=== PATIENT | male | born 1990 | race Caucasian/White ===

== ENCOUNTER 2022-11-09 10:49 | Emergency (ER) | payer OTHER ==
[2022-11-09 11:17] VITALS: TEMP 98
[2022-11-09] MEDS ORDERED: SODIUM CHLORIDE 0.9% 1,000 ML IV STA (11:37)
[2022-11-09] MEDS ORDERED: fentaNYL (PF) 50 MCG/ML 2 ML AMP IVP PRN (11:38)
[2022-11-09] MEDS ORDERED: PANTOPRAZOLE 40 MG/10 ML VIAL IVP STA (11:39)
--- NOTE | 2022-11-09 11:43 | ED ---
Abdominal Pain HPI - General Chief Complaint: Abdominal Pain Stated Complaint: abd pain Time Seen by Provider: 11/09/22 11:32 Source: patient, RN notes reviewed, old records reviewed Mode of arrival: ambulatory Limitations: no limitations - History of Present Illness Initial Comments: This is a 32-year-old male that presents with complaint of right upper quadrant abdominal pain for the past 2 days radiating into his back. He had one episode of vomiting spaghetti today. Denies any fevers. States that he tried to drink a pint of liquor today to help with the pain with no relief. History of kidney stones. Patient states he only drinks a couple of times a month is not a daily drinker. He does vape, also smokes marijuana daily. MD Complaint: abdominal pain -: days(s) (2) Location: RUQ Radiation: R flank Severity scale (1-10): 10 Quality: sharp Consistency: constant Improves With: nothing Worsens With: nothing Associated Symptoms: nausea, vomiting - Related Data Home Medications Medication Instructions Recorded Confirmed Albuterol Sulfate [Albuterol 1 - 2 puff PO RT-Q4H PRN 11/09/22 11/09/22 Sulfate Hfa] Previous Rx's Medication Instructions Recorded Famotidine [Pepcid] 20 mg PO BID #28 tablet 11/09/22 Allergies Allergy/AdvReac Type Severity Reaction Status Date / Time arrieta Allergy Anaphylaxis Verified 11/09/22 13:17 morphine Allergy Swelling Verified 11/09/22 13:17 Review of Systems ROS Statement: Those systems with pertinent positive or pertinent negative responses have been documented in the HPI. ROS Other: All systems not noted in ROS Statement are negative. Past Medical History Past Medical History: Asthma Additional Past Medical History / Comment(s): kidney stone History of Any Multi-Drug Resistant Organisms: None Reported Past Surgical History: No Surgical Hx Reported Past Psychological History: No Psychological Hx Reported Smoking Status: Current every day smoker Past Alcohol Use History: Abuse Past Drug Use History: None Reported General Exam Limitations: no limitations General appearance: alert, in no apparent distress Head exam: Present: atraumatic Eye exam: Absent: scleral icterus, conjunctival injection, periorbital swelling ENT exam: Present: mucous membranes moist, other (Poor dentition) Neck exam: Present: full ROM. Absent: tenderness, meningismus Respiratory exam: Present: normal lung sounds bilaterally. Absent: respiratory distress, accessory muscle use Cardiovascular Exam: Present: tachycardia GI/Abdominal exam: Present: soft, tenderness (Right upper quadrant). Absent: distended, rigid, mass Extremities exam: Present: normal capillary refill Back exam: Present: normal inspection, full ROM. Absent: tenderness, CVA tenderness (R), CVA tenderness (L), vertebral tenderness, rash noted Neurological exam: Present: alert, oriented X3, normal gait Psychiatric exam: Present: normal affect, normal mood Skin exam: Present: warm, dry, normal color. Absent: cyanosis, diaphoretic, petechiae, pallor Course Vital Signs 11/09/22 11/09/22 11:14 13:51 Temperature 98 F Pulse Rate 110 H 104 H Respiratory 20 18 Rate Blood Pressure 132/87 112/66 O2 Sat by Pulse 96 100 Oximetry Medical Decision Making - Medical Decision Making Labs show an alcohol level 284, lactic acid 2.3, lipase 176, AST 75, ALT 66 and Tbili 0.4. He was given IV fluid bolus, droperidol Protonix and fentanyl. CT shows bilateral nonobstructive renal calculi, no suspicious stones along the ureters. Questionable slight haziness adjacent to the pancreatic head correlate with mild acute pancreatitis. Patient states that he is feeling better and requesting to be discharged home. He was directed to find a ride as his level is elevated 0.284. He was prescribed pepcid and directed to avoid alcohol and followup with his PCP next week, return to the ER if any new or worsening symptoms. He is agreeable to this plan of care. Case discussed with Dr Luo Was pt. sent in by a medical professional or institution? @ No Did you speak to anyone other than the patient for history? @ no Did you review nursing and triage notes? @ Yes I agree Were old charts reviewed? @ No Differential Diagnosis? @ MDM Differential Abdominal Pain Men: Appendicitis, cholecystitis, diverticulosis, ischemic bowel, pancreatitis, hepatitis, UTI, gastroenteritis, AAA, incarcerated hernia, bowel obstruction, constipation, inflammatory bowel, hepatitis, peptic ulcer disease, splenic infarction, perforated viscus, testicular torsion... This is not meant to be an all-inclusive list EKG interpreted by me (3pts min.)? @ [none] X-rays interpreted by me (1pt min.)? @ [none] CT interpreted by me (1pt min.)? @ No U/S interpreted by me (1pt. min.)? @ [none] What testing was considered but not performed? (CT, X-rays, U/S, labs)? Why? @ None What meds were considered but not given? Why? @ Antibiotics considered but no infectious etiology was found Did you discuss the management of the patient with other professionals? @ No Did you reconcile home meds? @ none Was smoking cessation discussed for >3mins.? @ Yes discussed smoking is consistent with a prolonged healing time and chronic illness Was critical care preformed (if so, how long)? @ No Were there social determinants of health that impacted care today? How? (Homelessness, low income, unemployed, alcoholism, drug addiction, transportation, low edu. Level, literacy, decrease access to med. care, group home, rehab)? @ Alcohol use and marijuana as well as discussed Was there de-escalation of care discussed even if they declined? (Discuss DNR or withdrawal of care, Hospice)? @ None What co-morbidities impacted this encounter? (DM, HTN, Smoking, COPD, CAD, Cancer, CVA, Hep., AIDS, mental health diagnosis, sleep apnea, morbid obesity)? @ Smoking Was patient admitted / discharged? @ Discharged Undiagnosed new problem with uncertain prognosis? @ Pancreatitis Drug Therapy requiring intensive monitoring for toxicity (Heparin, Nitro, Insulin, Cardizem)? @ [none] Were any procedures done? @ No Diagnosis/symptom? @ Mild pancreatitis, gastritis Acute, or Chronic, or Acute on Chronic? @ Acute Uncomplicated (without systemic symptoms) or Complicated (systemic symptoms)? @ Uncomplicated Side effects of treatment? @ [none] Exacerbation, Progression, or Severe Exacerbation] @ [no] Poses a threat to life or bodily function? @ [no] - Lab Data Result diagrams: 11/09/22 12:05 11/09/22 12:05 Lab Results 11/09/22 11/09/22 11/09/22 Range/Units 12: 12:05 12:05 WBC 8.9 (3.8-10.6) k/uL RBC 5.17 (4.30-5.90) m/uL Hgb 15.9 (13.0-17.5) gm/dL Hct 45.3 (39.0-53.0) % MCV 87.5 (80.0-100.0) fL MCH 30.8 (25.0-35.0) pg MCHC 35.1 (31.0-37.0) g/dL RDW 13.2 (11.5-15.5) % Plt Count 471 H (150-450) k/uL MPV 7.3 Neutrophils % 44 % Lymphocytes % 45 % Monocytes % 5 % Eosinophils % 2 % Basophils % 1 % Neutrophils # 3.9 (1.3-7.7) k/uL Lymphocytes # 4.0 (1.0-4.8) k/uL Monocytes # 0.5 (0-1.0) k/uL Eosinophils # 0.2 (0-0.7) k/uL Basophils # 0.1 (0-0.2) k/uL Sodium 142 (137-145) mmol/L Potassium 4.4 (3.5-5.1) mmol/L Chloride 109 H (98-107) mmol/L Carbon Dioxide 19 L (22-30) mmol/L Anion Gap 14 mmol/L BUN 11 (9-20) mg/dL Creatinine 0.81 (0.66-1.25) mg/dL Est GFR (CKD-EPI)AfAm >90 (>60 ml/min/1.73 sqM) Est GFR (CKD-EPI)NonAf >90 (>60 ml/min/1.73 sqM) Glucose 77 (74-99) mg/dL Lactic Ac Sepsis Rflx Plasma Lactic Acid [place] 2.3 H* (0.7-2.0) mmol/L Calcium 9.1 (8.4-10.2) mg/dL Total Bilirubin 0.4 (0.2-1.3) mg/dL AST 75 H (17-59) U/L ALT 66 H (4-49) U/L Alkaline Phosphatase 117 (38-126) U/L Total Protein 8.3 H (6.3-8.2) g/dL Albumin 5.1 H (3.5-5.0) g/dL Amylase 71 (30-110) U/L Lipase 176 (23-300) U/L Urine Color Urine Appearance (Clear) Urine pH (5.0-8.0) Ur Specific [place] (1.001-1.035) Urine Protein (Negative) Urine Glucose (UA) (Negative) Urine Ketones (Negative) Urine Blood (Negative) Urine Nitrite (Negative) Urine Bilirubin (Negative) Urine Urobilinogen (<2.0) mg/dL Ur Leukocyte Esterase (Negative) Serum Alcohol 284 H* mg/dL 11/09/22 11/09/22 Range/Units 13:13 13:22 WBC (3.8-10.6) k/uL RBC (4.30-5.90) m/uL Hgb (13.0-17.5) gm/dL Hct (39.0-53.0) % MCV (80.0-100.0) fL MCH (25.0-35.0) pg MCHC (31.0-37.0) g/dL RDW (11.5-15.5) % Plt Count (150-450) k/uL MPV Neutrophils % % Lymphocytes % % Monocytes % % Eosinophils % % Basophils % % Neutrophils # (1.3-7.7) k/uL Lymphocytes # (1.0-4.8) k/uL Monocytes # (0-1.0) k/uL Eosinophils # (0-0.7) k/uL Basophils # (0-0.2) k/uL Sodium (137-145) mmol/L Potassium (3.5-5.1) mmol/L Chloride (98-107) mmol/L Carbon Dioxide (22-30) mmol/L Anion Gap mmol/L BUN (9-20) mg/dL Creatinine (0.66-1.25) mg/dL Est GFR (CKD-EPI)AfAm (>60 ml/min/1.73 sqM) Est GFR (CKD-EPI)NonAf (>60 ml/min/1.73 sqM) Glucose (74-99) mg/dL Lactic Ac Sepsis Rflx Y Plasma Lactic Acid [place] (0.7-2.0) mmol/L Calcium (8.4-10.2) mg/dL Total Bilirubin (0.2-1.3) mg/dL AST (17-59) U/L ALT (4-49) U/L Alkaline Phosphatase (38-126) U/L Total Protein (6.3-8.2) g/dL Albumin (3.5-5.0) g/dL Amylase (30-110) U/L Lipase (23-300) U/L Urine Color Light Yellow Urine Appearance Clear (Clear) Urine pH 5.5 (5.0-8.0) Ur Specific [place] 1.008 (1.001-1.035) Urine Protein Negative (Negative) Urine Glucose (UA) Negative (Negative) Urine Ketones 1+ H (Negative) Urine Blood Negative (Negative) Urine Nitrite Negative (Negative) Urine Bilirubin Negative (Negative) Urine Urobilinogen <2.0 (<2.0) mg/dL Ur Leukocyte Esterase Negative (Negative) Serum Alcohol mg/dL Disposition Clinical Impression: Abdominal pain, Pancreatitis, Gastritis Disposition: HOME SELF-CARE Condition: Good Instructions (If sedation given, give patient instructions): Gastritis (ED), Abdominal Pain (ED) Additional Instructions: Stop drinking, stop smoking marijuana and stop vaping. These things will prolong illness and cause chronic illnesses. Take Pepcid as prescribed. Increase your fluid intake. Eat small low fat meals and slowly advance your diet over the next 3-6 days. Follow-up with your primary care doctor next week. Return to the emergency room with any new or concerning symptoms.. Prescriptions: Famotidine [Pepcid] 20 mg PO BID #28 tablet Is patient prescribed a controlled substance at d/c from ED?: No Referrals: None,Stated [Primary Care Provider] - 1-2 days Time of Disposition: 13:42
--- NOTE | 2022-11-09 12:45 | CT ---
EXAMINATION TYPE: CT abdomen pelvis wo con DATE OF EXAM: 11/09/2022 COMPARISON: None HISTORY: 32-year-old male generalized abdominal pain CT DLP: 365.3 mGycm. Automated exposure control for dose reduction was used. TECHNIQUE: Contiguous axial scanning of the abdomen and pelvis without IV contrast. Coronal and sagit charlee reconstructions performed. FINDINGS: LUNG BASES: No significant abnormality is appreciated. LIVER/GB: Diffuse low attenuation of the hepatic parenchyma compatible with fatty infiltration. Gallb ladder within normal limits. PANCREAS: Questionable slight peripancreatic hazy density anterior to the head of the pancreas, axial images 43 and 44. SPLEEN: No significant abnormality is seen. ADRENALS: No significant abnormality is seen. KIDNEYS: Extrarenal pelvis, left greater than right. 4 mm nonobstructive right renal calculus. 9 mm n onobstructive left renal calculus. No suspicious calcification seen along the course of either ureter . BOWEL: Mild overall stool burden. No dilated small bowel, free fluid, or free air. Normal appendix. LYMPH NODES: No significant abnormality is seen. PELVIS: Prostate gland mildly enlarged at 4.2 cm wide. No abnormal fluid collection in the pelvis or pelvic lymphadenopathy. BONES: No significant abnormality is seen. IMPRESSION: 1. At least moderate hepatic steatosis. Correlate with LFTs, lipid profile, patient risk factors. 2. Questionable slight haziness adjacent to the pancreatic head. Correlate with amylase and lipase l evels to exclude mild acute pancreatitis. 3. Bilateral nonobstructive renal calculi measuring 9 mm on the left and 4 mm on the right. No suspi cious stone seen along the course of either ureter. 4. Mild prostatomegaly at 4.2 cm wide.
[2022-11-09 12:51] LABS: Basophils # (A) 0.1 k/uL (0-0.2); Basophils % (A) 1 %; Eosinophils # (A) 0.2 k/uL (0-0.7); Eosinophils % (A) 2 %; HCT 45.3 % (39.0-53.0); HGB 15.9 gm/dL (13.0-17.5); Lymphocytes % (A) 45 %; MCH 30.8 pg (25.0-35.0); MCHC 35.1 g/dL (31.0-37.0); MCV 87.5 fL (80.0-100.0); Mean Platelet Volume 7.3; Monocytes # (A) 0.5 k/uL (0-1.0); Monocytes % (A) 5 %; Neutrophils # (A) 3.9 k/uL (1.3-7.7); Neutrophils % (A) 44 %; Platelet Count 471 k/uL (150-450); RBC 5.17 m/uL (4.30-5.90); RDW 13.2 % (11.5-15.5); WBC 8.9 k/uL (3.8-10.6)
[2022-11-09 13:21] LABS: Appearance,Urine Clear (Clear); Bilirubin,Urine Negative (Negative); Blood,Urine Negative (Negative); Color,Urine Light Yellow; Glucose,Urine (UA) Negative (Negative); Ketones,Urine 1+ (Negative); Leukocyte Esterase,Urine Negative (Negative); Nitrite,Urine Negative (Negative); PH, Urine 5.5 (5.0-8.0); Protein,Urine Negative (Negative); Specific Gravity,Urine 1.008 (1.001-1.035); Urobilinogen,Urine <2.0 mg/dL (<2.0)
[2022-11-09 13:23] LABS: ALT 66 U/L (4-49); AST 75 U/L (17-59); African American GFR (CKD) >90 (>60 ml/min/1.73 sqM); Albumin 5.1 g/dL (3.5-5.0); Alkaline Phosphatase 117 U/L (38-126); Amylase 71 U/L (30-110); Anion Gap 14 mmol/L; Blood Urea Nitrogen 11 mg/dL (9-20); Calcium 9.1 mg/dL (8.4-10.2); Carbon Dioxide 19 mmol/L (22-30); Chloride 109 mmol/L (98-107); Glucose 77 mg/dL (74-99); Lipase 176 U/L (23-300); Non-African American GFR(CKD) >90 (>60 ml/min/1.73 sqM); Potassium 4.4 mmol/L (3.5-5.1); Sodium 142 mmol/L (137-145); Total Bilirubin 0.4 mg/dL (0.2-1.3); Total Protein 8.3 g/dL (6.3-8.2)
[2022-11-09 13:27] LABS: Alcohol 284 mg/dL
[2022-11-09 13:53] VITALS: BP 112/66; PULSE 104; RESP 18
== END 2022-11-09 13:53 | disposition home or self-care (01) ==
LOC: EC 10:49
DX: R10.11 Right upper quadrant pain (principal); K85.90 Acute pancreatitis without necrosis or infection, unspecified; K29.70 Gastritis, unspecified, without bleeding; J45.909 Unspecified asthma, uncomplicated; F17.200 Nicotine dependence, unspecified, uncomplicated; Z91.018 Allergy to other foods; Z88.6 Allergy status to analgesic agent; Z79.899 Other long term (current) drug therapy
CPT/HCPCS: 36415; 80053; 82150; 83605; 83690; 85025; 81003; 74176; 99284; 96374; 96375; 96361; G0480; C9113; J1790; 80320

== ENCOUNTER 2022-11-25 10:35 | Inpatient (IN) | payer OTHER ==
[2022-11-25] MEDS ORDERED: SODIUM CHLORIDE 0.9% 1,000 ML IV STA ×2 (10:56)
[2022-11-25] MEDS ORDERED: PANTOPRAZOLE 40 MG/10 ML VIAL IVP STA (10:56)
[2022-11-25] MEDS ORDERED: ONDANSETRON 4 MG/2 ML VIAL IVP STA (10:56)
[2022-11-25] MEDS ORDERED: HYDROmorphone 0.5 MG/0.5 ML SYRINGE IVP STA (10:57)
--- NOTE | 2022-11-25 10:58 | ED ---
Abdominal Pain HPI - General Chief Complaint: Abdominal Pain Stated Complaint: pancreatitis Time Seen by Provider: 11/25/22 10:38 Source: patient, EMS, RN notes reviewed, old records reviewed - History of Present Illness Initial Comments: This is a 32-year-old male that presents to the emergency room with abdominal pain radiating into his back with nausea and vomiting. History of pancreatitis states feels the same. States was just discharged on November 15 for pancreatitis. Denies any alcohol use. States that the pain never went away even at discharge was down only to 2. At 10 o'clock this morning became severe again in nature bringing him back to the emergency room. MD Complaint: abdominal pain -: hour(s) (1) Location: epigastric Radiation: back Severity scale (1-10): 10 Consistency: constant Context: other (Pancreatitis history) - Related Data Home Medications Medication Instructions Recorded Confirmed Albuterol Sulfate [Albuterol 1 - 2 puff INHALATION RT-Q4H PRN 11/09/22 11/25/22 Sulfate Hfa] Allergies Allergy/AdvReac Type Severity Reaction Status Date / Time arrieta Allergy Anaphylaxis Verified 11/25/22 10:42 Review of Systems ROS Statement: Those systems with pertinent positive or pertinent negative responses have been documented in the HPI. ROS Other: All systems not noted in ROS Statement are negative. Past Medical History Past Medical History: Asthma Additional Past Medical History / Comment(s): kidney stone History of Any Multi-Drug Resistant Organisms: MRSA, None Reported Date of last positivie culture/infection: 2016 MDRO Source:: leg Past Surgical History: No Surgical Hx Reported Additional Past Anesthesia/Blood Transfusion Reaction / Comment(s): N/A Past Psychological History: No Psychological Hx Reported Smoking Status: Current every day smoker, Vaper Past Alcohol Use History: Abuse, Daily Past Drug Use History: Marijuana, None Reported - Past Family History Father History Unknown: Yes Additional Family Medical History / Comment(s): from being "beaten to " per patient. Mother Family Medical History: Cancer Additional Family Medical History / Comment(s): from cancer at age 43, unsure of what kind. General Exam Limitations: no limitations General appearance: alert, in no apparent distress Head exam: Present: atraumatic Respiratory exam: Absent: respiratory distress, accessory muscle use Cardiovascular Exam: Present: regular rate GI/Abdominal exam: Present: tenderness. Absent: distended, rigid Extremities exam: Present: normal capillary refill. Absent: pedal edema Back exam: Present: paraspinal tenderness (Lumbar) Neurological exam: Present: alert, oriented X3 Psychiatric exam: Present: normal affect, normal mood Skin exam: Present: warm, dry, normal color. Absent: cyanosis, diaphoretic, petechiae, pallor Course Vital Signs 11/25/22 11/25/22 11/25/22 10:38 11:04 12:40 Temperature 98.1 F Pulse Rate 66 69 56 L Respiratory 19 18 18 Rate Blood Pressure 143/119 143/119 156/100 O2 Sat by Pulse 100 99 100 Oximetry 11/25/22 13:43 Temperature Pulse Rate 52 L Respiratory 19 Rate Blood Pressure 161/106 O2 Sat by Pulse 98 Oximetry - Reevaluation(s) Reevaluation #1: 11/25/22 12:14 CT performed on November 15, repeat CT requested by Dr. Guzman Time: 12:14 Medical Decision Making - Medical Decision Making Patient was seen by Dr. Henriquez at last admission and directed to avoid alcohol, continue low fat diet. Discharged with a lipase of 1741 On last admission a CT was performed showing acute interstitial, pancreatitis no necrosis or pancreatic fluid collection. 8 mm hypodense focus in pancreatic head which may represent a pseudocyst. Today X-ray shows a 6 mm left renal calculus, nonspecific bowel gas pattern no evidence for acute process. No evidence of leukocytosis or lactic acidosis. Amylase 321, lipase 3804, doubled from last admission He'll be admitted for pancreatitis. He was given multiple doses of pain medication with some pain relief. He is agreeable to admission. Case discussed with Dr. Barrios Case discussed with Dr. Guzman who requested CT. CT shows acute interstitial edematous pancreatitis with no evidence of necrosis. An 8 mm hypodense focus within the pancreatic head representing a pseudocyst. Nonobstructive bilateral renal calculi. Was pt. sent in by a medical professional or institution? @ -No Did you speak to anyone other than the patient for history? @ -No Did you review nursing and triage notes? @ -yes I agree Were old charts reviewed? @ -yes, previous admission records, CT and labs Differential Diagnosis? @ -Differential Abdominal Pain Men: Appendicitis, cholecystitis, diverticulosis, ischemic bowel, pancreatitis, hepatitis, UTI, gastroenteritis, incarcerated hernia, bowel obstruction, constipation, inflammatory bowel, hepatitis, peptic ulcer disease, splenic infarction, perforated viscus, this is not meant to be an all-inclusive list EKG interpreted by me (3pts min.)? @ -[none] X-rays interpreted by me (1pt min.)? @ -Yes as above CT interpreted by me (1pt min.)? @ -no U/S interpreted by me (1pt. min.)? @ -[none] What testing was considered but not performed? (CT, X-rays, U/S, labs)? Why? @ No What meds were considered but not given? Why? @ -Antibiotics were considered however there is no evidence of appendicitis, or infectious etiology. This appears to be exacerbation of pancreatitis Did you discuss the management of the patient with other professionals? @ -Dr Guzman Did you reconcile home meds? @ -No Was smoking cessation discussed for >3mins.? @ -Yes Was critical care preformed (if so, how long)? @ -No Were there social determinants of health that impacted care today? How? (Homelessness, low income, unemployed, alcoholism, drug addiction, transportation, low edu. Level, literacy, decrease access to med. care, [facility], rehab)? @ -Alcoholism Was there de-escalation of care discussed even if they declined? (Discuss DNR or withdrawal of care, Hospice)? @ -No What co-morbidities impacted this encounter? (DM, HTN, Smoking, COPD, CAD, Cancer, CVA, Hep., AIDS, mental health diagnosis, sleep apnea, morbid obesity)? @ -Smoking, alcohol use Was patient admitted / discharged? @ -Admitted Undiagnosed new problem with uncertain prognosis? @ -[none] Drug Therapy requiring intensive monitoring for toxicity (Heparin, Nitro, Insulin, Cardizem)? @ -No Were any procedures done? @ -No Diagnosis/symptom? @ -Pancreatitis Acute, or Chronic, or Acute on Chronic? @ -Acute Uncomplicated (without systemic symptoms) or Complicated (systemic symptoms)? @ -Complicated Side effects of treatment? @ -[none] Exacerbation, Progression, or Severe Exacerbation] @ -[no] Poses a threat to life or bodily function? @ -[no] - Lab Data Result diagrams: 11/25/22 11:11 11/25/22 11:11 Lab Results 11/25/22 11/25/22 11/25/22 Range/Units 11:11 11:11 11:11 WBC 7.8 (3.8-10.6) k/uL RBC 4.94 (4.30-5.90) m/uL Hgb 15.2 (13.0-17.5) gm/dL Hct 44.0 (39.0-53.0) % MCV 89.2 (80.0-100.0) fL MCH 30.7 (25.0-35.0) pg MCHC 34.5 (31.0-37.0) g/dL RDW 13.6 (11.5-15.5) % Plt Count 580 H (150-450) k/uL MPV 6.8 Neutrophils % 43 % Lymphocytes % 42 % Monocytes % 5 % Eosinophils % 6 % Basophils % 1 % Neutrophils # 3.4 (1.3-7.7) k/uL Lymphocytes # 3.3 (1.0-4.8) k/uL Monocytes # 0.4 (0-1.0) k/uL Eosinophils # 0.4 (0-0.7) k/uL Basophils # 0.1 (0-0.2) k/uL Sodium 140 (137-145) mmol/L Potassium 4.2 (3.5-5.1) mmol/L Chloride 106 (98-107) mmol/L Carbon Dioxide 25 (22-30) mmol/L Anion Gap 9 mmol/L BUN 8 L (9-20) mg/dL Creatinine 0.79 (0.66-1.25) mg/dL Est GFR (CKD-EPI)AfAm >90 (>60 ml/min/1.73 sqM) Est GFR (CKD-EPI)NonAf >90 (>60 ml/min/1.73 sqM) Glucose 110 H (74-99) mg/dL Plasma Lactic Acid [place] 1.6 (0.7-2.0) mmol/L Calcium 9.7 (8.4-10.2) mg/dL Total Bilirubin 0.8 (0.2-1.3) mg/dL AST 50 (17-59) U/L ALT 45 (4-49) U/L Alkaline Phosphatase 101 (38-126) U/L Total Protein 7.5 (6.3-8.2) g/dL Albumin 4.4 (3.5-5.0) g/dL Amylase 321 H* (30-110) U/L Lipase 3804 H (23-300) U/L Disposition Clinical Impression: Pancreatitis Disposition: ADMITTED IP TO THIS [facility] Decision Date: 11/25/22 Decision Time: 12:07
[2022-11-25 11:20] LABS: Basophils # (A) 0.1 k/uL (0-0.2); Basophils % (A) 1 %; Eosinophils # (A) 0.4 k/uL (0-0.7); Eosinophils % (A) 6 %; HGB 15.2 gm/dL (13.0-17.5); Lymphocytes # (A) 3.3 k/uL (1.0-4.8); Lymphocytes % (A) 42 %; MCH 30.7 pg (25.0-35.0); MCHC 34.5 g/dL (31.0-37.0); MCV 89.2 fL (80.0-100.0); Mean Platelet Volume 6.8; Monocytes # (A) 0.4 k/uL (0-1.0); Monocytes % (A) 5 %; Neutrophils # (A) 3.4 k/uL (1.3-7.7); Neutrophils % (A) 43 %; Platelet Count 580 k/uL (150-450); RBC 4.94 m/uL (4.30-5.90); RDW 13.6 % (11.5-15.5); WBC 7.8 k/uL (3.8-10.6)
[2022-11-25 11:36] LABS: ALT 45 U/L (4-49); AST 50 U/L (17-59); African American GFR (CKD) >90 (>60 ml/min/1.73 sqM); Albumin 4.4 g/dL (3.5-5.0); Alkaline Phosphatase 101 U/L (38-126); Anion Gap 9 mmol/L; Blood Urea Nitrogen 8 mg/dL (9-20); Calcium 9.7 mg/dL (8.4-10.2); Carbon Dioxide 25 mmol/L (22-30); Chloride 106 mmol/L (98-107); Glucose 110 mg/dL (74-99); Non-African American GFR(CKD) >90 (>60 ml/min/1.73 sqM); Potassium 4.2 mmol/L (3.5-5.1); Sodium 140 mmol/L (137-145); Total Bilirubin 0.8 mg/dL (0.2-1.3); Total Protein 7.5 g/dL (6.3-8.2)
--- NOTE | 2022-11-25 11:37 | XR ---
EXAMINATION TYPE: XR KUB DATE OF EXAM: 11/25/2022 11:23 AM INDICATION: Patient age:Male; 32 years old; Reason for study: abdominal pain; COMPARISON: None. TECHNIQUE: One radiographic view of the abdomen was obtained. FINDINGS: The bowel gas pattern is nonspecific without dilated loops of small or large bowel. There i s no evidence for organomegaly or pneumoperitoneum. The osseous structures are intact. 6 mm left benjy al calculus Fecal material and gas are demonstrated throughout the colon and rectum. IMPRESSION: 1. Left renal calculus measures 6 mm. 2. Nonspecific bowel gas pattern without radiographic evidence for acute process.
[2022-11-25 11:42] LABS: Amylase 321 U/L (30-110)
[2022-11-25 11:47] LABS: Lipase 3804 U/L (23-300)
[2022-11-25] MEDS ORDERED: HYDROmorphone 0.5 MG/0.5 ML SYRINGE IVP PRN (12:11)
[2022-11-25] MEDS ORDERED: ACETAMINOPHEN TAB 325 MG TAB PO PRN (12:11)
[2022-11-25] MEDS ORDERED: NALOXONE 0.4 MG/ML 1 ML VIAL IV PRN ×2 (12:11→13:43)
[2022-11-25] MEDS ORDERED: SODIUM CHLORIDE 0.9% 1,000 ML IV SCH (12:15)
--- NOTE | 2022-11-25 12:48 | CT ---
EXAMINATION TYPE: CT abdomen pelvis w con CT DLP: 628.5 mGycm, Automated exposure control for dose reduction was used. DATE OF EXAM: 11/25/2022 12:31 PM COMPARISON: 11/15/2022 CLINICAL INDICATION:Male, 32 years old with history of pancreatitis abd pain; upper abd pain TECHNIQUE: Axial CT of the abdomen and pelvis. Sagittal and coronal reformats were created on a [employer] workstation. Contrast used:100 mL of Isovue 300 with IV Contrast, Oral contrast used: without Oral Contrast FINDINGS: LOWER CHEST: Unremarkable ABDOMEN LIVER: Unremarkable GALLBLADDER AND BILE DUCTS: Unremarkable. PANCREAS: Redemonstration of edematous pancreas predominantly involving the tail with adjacent fat st randing extending along the left anterior pararenal fascia. Additional sagittal haziness involving th e pancreatic head. 8 mm hypodense focus within the pancreatic head is unchanged. No organized fluid c ollection or evidence of necrosis. No parenchymal calcifications. Poor opacification of the arterial vasculature however no gross evidence for pseudoaneurysm. The venous vasculature is patent. SPLEEN: Unremarkable. ADRENAL GLANDS: Unremarkable. KIDNEYS AND URETERS: No evidence of hydronephrosis. Subcentimeter hypodense focus within the right mi d kidney which is too small to characterize. Nonobstructive right inferior pole 3 mm calculus. Nonobs tructive left inferior pole 6 mm calculus. PELVIS BLADDER: Underdistended, limiting evaluation. REPRODUCTIVE: Unremarkable. ABDOMEN & PELVIS STOMACH AND BOWEL: Stomach and duodenum are unremarkable. No focal wall thickening. The appendix is w ithin normal limits. No evidence of bowel obstruction. PERITONEUM: No evidence of pneumoperitoneum with small amount of free fluid and mesenteric edema. VASCULATURE: No evidence of aortic aneurysm. MUSCULOSKELETAL: No acute osseous abnormalities. Scarring foci within the bilateral proximal femurs a nd right initial tuberosity are most consistent with benign bone islands. LYMPH NODES: No gross evidence for lymphadenopathy. SOFT TISSUE/ABDOMINAL WALL: Mild anasarca. IMPRESSION: 1. Similar acute interstitial edematous pancreatitis. No evidence for necrosis or organized peripancr eatic fluid collection. 2. Similar 8 millimeter hypodense focus within the pancreatic head which may represent a pseudocyst. 3. Similar Anasarca with mesenteric edema and small amount of free fluid likely related to #1. 4. Nonobstructive bilateral renal calculi.
[2022-11-25] MEDS ORDERED: bisacodyL 5 MG TABLET.DR PO PRN (13:43)
[2022-11-25] MEDS ORDERED: MELATONIN 3 MG TABLET PO PRN (13:43)
[2022-11-25] MEDS ORDERED: LORazepam 2 MG/ML INJ IV PRN (13:43)
[2022-11-25] MEDS ORDERED: ALBUTEROL NEBULIZED 2.5 MG/3 ML INHALATION PRN (13:45)
[2022-11-25] MEDS ORDERED: LACTATED RINGERS 1,000 ML IV SCH ×2 (13:45)
--- NOTE | 2022-11-25 13:50 | P.HPIM ---
History of Present Illness H&P Date: 11/25/22 Patient is a 32-year-old male who initially presented to the ER on 11/09 he was diagnosed with pancreatitis, intially he went home from the ED and then represented on 11/10 requiring hospitalization for pancreatitis through 11/15. He presented to the ER on 11/25 due to worsening abdominal pain. In the ER he underwent an extensive evaluation. He was hypertensive on arrival with a blood pressure of 143/119. Initial laboratory analysis demonstrated a platelet count of 580, glucose 110, amylase 321, and lipase 3804. KUB demonstrated left renal calculus.CT abdomen and pelvis shows interstitial edematous pancreatitis without evidence of necrosis or organized pancreatic fluid collection with an 8 mm hypodense focus at the pancreatic head which may represent pseudocyst, mesenteri c anasarca and edema, and nonobstructive bilateral renal calculi. In the ER he was given IV fluids, antiemetics, and Dilaudid. He is admitted for acute pancreatitis. Patient seen and examined at bedside. He reports that he was a miserable state of health yesterday. This morning he woke up at 10 AM and started having vomiting and sharp abdominal pain. Here he vomited 2 prior to presenting to the ER and has since been having dry heaves. He reports that his pain is epigastric with radiation to his back and then up into the left side of his chest. He does report a burning sensation of the back of his throat. He has not drank any alcohol since being discharged on 11/15/22. He denies any recent fatty foods but did have a lot of sugar yesterday. He denies eating anything else unusual. She has not yet followed up with Dr. Bullock's appointment is upcoming. He states he has been following his low-fat diet well and was attempting to avoid recurrent pancreatitis. He did take some NyQuil last night which is horrible for him. He has had one bout of diarrhea. He has no other complaints currently. Pertinent positives and negatives as discussed in HPI, a complete review of systems was performed and all other systems are negative. Vital signs reviewed General: nontoxic, mild distress secondary to pain, appears at stated age Derm: warm, dry Head: atraumatic, normocephalic, symmetric Eyes: EOMI, no lid lag, anicteric sclera, pupils equal round reactive to light ENT: Nose and ears atraumatic, no thrush, + pharyngeal erythema Neck: No thyromegaly, no cervical lymphadenopathy, trachea midline, supple Mouth: no lip lesion, mucus membranes moist Cardiovascular: S1S2 reg, no murmur, positive posterior tibial pulse bilateral, no edema, capillary refill less than 2 seconds Lungs: clear to auscultation bilateral, no rhonchi, no rales, no wheeze, no accessory muscle use Abdominal: soft, tender to palpation diffusely, most exclusively tender periepigastric., no guarding, no appreciable organomegaly, normal bowel sounds Ext: no gross muscle atrophy, muscle strength 5 out of 5 in all 4 extremities, no contractures Neuro: CN II-XII grossly intact, light touch intact all 4 extremities, finger to nose within normal limits, Psych: Alert, oriented, appropriate affect Assessment/Plan: Acute pancreatitis, recurrent Probable small pancreatic pseudocyst -Change IV fluids to lactated Ringer's run at 200 mL/h -Patient needs an additional 2 L of IV fluids -Nothing by mouth except for ice chips -Gallbladder ultrasound -Check IgG4 level -Consult GI in a.m. -Antiemetics, pain control - consider MRCP for evaluation of pancreatic head - has not drank alcohol since last discharge Nicotine dependency - cessation asthma without exacerbation - prn bronchdilators. Thrombocytosis - likely reactive - follow CBC The patient is admitted with an anticipated greater than 2 midnight stay for evaluation of recurrent pancreatitis DVT prophylaxis: lovenox Discussed with: patient Anticipated discharge date: pending clinical course Anticipated discharge place:pending clinical course A total of 65 minutes was spent on the care of this complex patient more than 50% of the time was spent in counseling and care coordination. Past Medical History Past Medical History: Asthma Additional Past Medical History / Comment(s): kidney stone History of Any Multi-Drug Resistant Organisms: MRSA, None Reported Date of last positivie culture/infection: 2016 MDRO Source:: leg Past Surgical History: No Surgical Hx Reported Additional Past Anesthesia/Blood Transfusion Reaction / Comment(s): N/A Past Psychological History: No Psychological Hx Reported Smoking Status: Current every day smoker, Vaper Past Alcohol Use History: None Reported (quit drinking 11/10/22) Past Drug Use History: Marijuana, None Reported - Past Family History Father History Unknown: Yes Additional Family Medical History / Comment(s): from being "beaten to " per patient. Mother Family Medical History: Cancer Additional Family Medical History / Comment(s): from cancer at age 43, unsure of what kind. Medications and Allergies Home Medications Medication Instructions Recorded Confirmed Type Albuterol Sulfate [Albuterol 1 - 2 puff INHALATION RT-Q4H PRN 11/09/22 11/25/22 History Sulfate Hfa] Allergies Allergy/AdvReac Type Severity Reaction Status Date / Time arrieta Allergy Anaphylaxis Verified 11/25/22 10:42 Physical Exam Osteopathic Statement: *. No significant issues noted on an osteopathic structural exam other than those noted in the History and Physical/Consult. Vitals: Vital Signs Temp Pulse Resp BP Pulse Ox 11/25/22 13:43 52 L 19 161/106 98 11/25/22 12:40 56 L 18 156/100 100 11/25/22 11:04 69 18 143/119 99 11/25/22 10:38 98.1 F 66 19 143/119 100 Intake and Output 11/24/22 11/25/22 11/25/22 22:59 06:59 14:59 Other: Weight 65.771 kg Results CBC & Chem 7: 11/25/22 11:11 11/25/22 11:11 Labs: Abnormal Lab Results - Last 24 Hours (Table) 11/25/22 11/25/22 Range/Units 11:11 11:11 Plt Count 580 H (150-450) k/uL BUN 8 L (9-20) mg/dL Glucose 110 H (74-99) mg/dL Amylase 321 H* (30-110) U/L Lipase 3804 H (23-300) U/L
[2022-11-25] MEDS: NICOTINE 14MG/24HR PATCH TRANSDERM SCH (14:07)
[2022-11-25] MEDS: HYDROmorphone 1 MG/ML 1 ML SYRINGE IVP PRN ×4 (14:35→23:55)
[2022-11-25] MEDS: LACTATED RINGERS 1,000 ML IV SCH ×3 (14:47→22:42)
--- NOTE | 2022-11-25 16:14 | US ---
EXAMINATION TYPE: US gallbladder DATE OF EXAM: 11/25/2022 COMPARISON: NONE CLINICAL HISTORY: gallstones. pain pancreatitis TECHNIQUE: Multiple sonographic images of the right upper quadrant are obtained. FINDINGS: EXAM MEASUREMENTS: Liver Length: 17.8 cm Gallbladder Wall: .3 cm CBD: .4 cm Right Kidney: 11 x 3.7 x 4.0 cm DIESEL ENGINE II PIPE FITTER NOTES: Pancreas: Obscured by bowel gas Liver: Echogenic area left lobe 2.8 x 1.8 x 2.2 cm. Gallbladder: No stones seen Evidence for sonographic Mark's sign: No CBD: wnl Right Kidney: wnl IMPRESSION: No gallstones or dilated ducts. Irregular echogenic area near the ovi hepatis appears benign and could be hemangioma.
[2022-11-25] MEDS: ONDANSETRON 4 MG/2 ML VIAL IVP PRN (20:55)
[2022-11-26] MEDS: HYDROmorphone 1 MG/ML 1 ML SYRINGE IVP PRN ×7 (02:53→23:03)
[2022-11-26] MEDS: LACTATED RINGERS 1,000 ML IV SCH ×4 (03:17→23:03)
[2022-11-26] MEDS: ONDANSETRON 4 MG/2 ML VIAL IVP PRN ×2 (05:57→15:50)
[2022-11-26] MEDS ORDERED: SODIUM CHLORIDE 0.9% 1,000 ML IV SCH (07:45)
[2022-11-26] MEDS: NICOTINE 14MG/24HR PATCH TRANSDERM SCH (08:41)
[2022-11-26] MEDS: PANTOPRAZOLE 40 MG/10 ML VIAL IV SCH (08:42)
[2022-11-26] MEDS: ENOXAPARIN 40 MG/0.4 ML SYRINGE SQ SCH (08:42)
[2022-11-26 08:49] LABS: African American GFR (CKD) 146.8 (60.0-200.0); Albumin 3.6 g/dL (3.8-4.9); Albumin/Globulin Ratio 1.71 (1.60-3.17); Anion Gap 9.4 mmol/L (10.00-18.00); BUN/Creat Ratio 7.71 Ratio (12.00-20.00); Blood Urea Nitrogen 5.4 mg/dL (9.0-27.0); Calcium 9.1 mg/dL (8.7-10.3); Carbon Dioxide 24.6 mmol/L (20.0-27.5); Globulin 2.1 g/dL (1.6-3.3); Magnesium 1.5 mg/dL (1.5-2.4); Non-African American GFR(CKD) 126.6 (60.0-200.0); Potassium 4.1 mmol/L (3.5-5.5); Total Bilirubin 0.5 mg/dL (0.30-1.20); Total Protein 5.7 g/dL (6.2-8.2)
[2022-11-26 09:22] LABS: Basophils # (A) 0.05 X 10*3/uL (0.00-0.10); Basophils % (A) 0.3 %; Eosinophils # (A) 0.05 X 10*3/uL (0.04-0.35); Eosinophils % (A) 0.3 %; HCT 41.4 % (39.6-50.0); HGB 13.8 g/dL (13.0-17.0); Immature Grans, Automated 1.3 %; Lymphocytes # (A) 1.15 X 10*3/uL (0.90-5.00); Lymphocytes % (A) 7.5 %; MCH 29.6 pg (27.0-32.0); MCHC 33.3 g/dL (32.0-37.0); MCV 88.8 fL (80.0-97.0); Monocytes # (A) 0.97 X 10*3/uL (0.20-1.00); Monocytes % (A) 6.3 %; NRBC Per 100 WBC 0 /100 WBCS (0.0-0.0); Neutrophils % (A) 84.3 %; Platelet Count 479 X 10*3/uL (140-440); RBC 4.66 X 10*6/uL (4.40-5.60); RDW 13.3 % (11.5-14.5); WBC 15.42 X 10*3/uL (4.50-10.00)
[2022-11-26 13:28] LABS: IgG Subclass 1 394.2 mg/dL (382.40-928.60); IgG Subclass 2 204.1 mg/dL (241.80-700.30); IgG Subclass 3 36.9 mg/dL (21.82-176.00); IgG Subclass 4 15.8 mg/dL (3.92-86.40)
--- NOTE | 2022-11-26 14:09 | P.PN ---
Subjective Progress Note Date: 11/26/22 Patient seen and examined at bedside. Patient continues to have epigastric pain with nausea denies fevers or chills. White blood cell count elevated today at 15.4 to lipase down to 1358 from 3804. Objective - Vital Signs Vital signs: Vital Signs Temp 98.8 F 11/26/22 11:56 Pulse 86 11/26/22 11:56 Resp 20 11/26/22 11:56 BP 146/90 11/26/22 11:56 Pulse Ox 99 11/26/22 11:56 FiO2 Intake & Output 11/25/22 11/26/22 11/26/22 18:59 06:59 18:59 Intake Total 240 525 Balance 240 525 Weight 65.771 kg Intake: Oral 240 525 Other: Voiding Method Toilet # Voids 3 3 - Exam General: [non toxic], [no distress], [appears at stated age] Derm: [warm], [dry] Head: [atraumatic], [normocephalic], [symmetric] Eyes: [EOMI], [no lid lag], [anicteric sclera] Mouth: [no lip lesion], [mucus membranes moist] Cardiovascular: [S1S2 reg], [no murmur], [positive posterior tibial pulse bilateral], Lungs: [CTA bilateral], [no rhonchi, no rales] , [no accessory muscle use] Abdominal: [soft], [epigastric pain with palpation no rebound], [no guarding], [no appreciable organomegaly] Ext: [no gross muscle atrophy], [no edema], [no contractures] Neuro: [ CN II-XI grossly intact], [no focal neuro deficits] Psych: [Alert], [oriented], [appropriate affect] - Labs CBC & Chem 7: 11/26/22 04:42 11/26/22 04:42 Labs: Abnormal Lab Results - Last 24 Hours (Table) 11/26/22 11/26/22 11/26/22 Range/Units 04:42 04:42 04:42 WBC 15.42 H (4.50-10.00) X 10*3/uL Plt Count 479 H (140-440) X 10*3/uL MPV 9.0 L (9.5-12.2) fL Immature Gran # 0.20 H (0.00-0.04) X 10*3/uL Neutrophils # 13.00 H (1.80-7.70) X 10*3/uL Anion Gap 9.40 L (10.00-18.00) mmol/L BUN 5.4 L (9.0-27.0) mg/dL BUN/Creatinine Ratio 7.71 L (12.00-20.00) Ratio Total Protein 5.7 L (6.2-8.2) g/dL Albumin 3.6 L (3.8-4.9) g/dL Amylase 805 H* (23-121) U/L Lipase 1358 H (14-60) U/L IgG2 204.10 L (241.80-700.30) mg/dL Assessment and Plan Assessment: Acute pancreatitis, recurrent -MRCP for evaluation of pancreatic head -no GI today -Probable small pancreatic pseudocyst -Continue lactated Ringer's run at 200 mL/h -Nothing by mouth except for ice chips -Gallbladder ultrasound reviewed no gallstones or dilated duct hemangioma identified -IgG4 level normal IgG2 level low at 204 - -Antiemetics, pain control - has not drank alcohol since last discharge Nicotine dependency - cessation asthma without exacerbation - prn bronchdilators. Thrombocytosis with leukocytosis - likely reactive - follow CBC - check procalcitonin AM labs
[2022-11-27] MEDS: HYDROmorphone 1 MG/ML 1 ML SYRINGE IVP PRN ×7 (02:12→21:50)
[2022-11-27] MEDS: LACTATED RINGERS 1,000 ML IV SCH ×5 (03:37→20:00)
[2022-11-27] MEDS: PANTOPRAZOLE 40 MG/10 ML VIAL IV SCH (08:28)
[2022-11-27] MEDS: ENOXAPARIN 40 MG/0.4 ML SYRINGE SQ SCH (08:29)
[2022-11-27] MEDS: NICOTINE 14MG/24HR PATCH TRANSDERM SCH (08:38)
[2022-11-27 08:52] LABS: Basophils # (A) 0.05 X 10*3/uL (0.00-0.10); Basophils % (A) 0.5 %; Eosinophils # (A) 0.27 X 10*3/uL (0.04-0.35); Eosinophils % (A) 2.8 %; HCT 37.1 % (39.6-50.0); HGB 12.5 g/dL (13.0-17.0); Immature Grans, Automated 0.3 %; Lymphocytes # (A) 1.89 X 10*3/uL (0.90-5.00); Lymphocytes % (A) 19.6 %; MCH 30.1 pg (27.0-32.0); MCHC 33.7 g/dL (32.0-37.0); MCV 89.4 fL (80.0-97.0); Mean Platelet Volume 9.3 fL (9.5-12.2); Monocytes # (A) 0.89 X 10*3/uL (0.20-1.00); Monocytes % (A) 9.2 %; NRBC Per 100 WBC 0 /100 WBCS (0.0-0.0); Neutrophils % (A) 67.6 %; Platelet Count 372 X 10*3/uL (140-440); RBC 4.15 X 10*6/uL (4.40-5.60); RDW 13.2 % (11.5-14.5); WBC 9.63 X 10*3/uL (4.50-10.00)
[2022-11-27 09:26] LABS: African American GFR (CKD) 144.8 (60.0-200.0); Albumin 3.3 g/dL (3.8-4.9); Albumin/Globulin Ratio 1.63 (1.60-3.17); Anion Gap 9.1 mmol/L (10.00-18.00); BUN/Creat Ratio 4.21 Ratio (12.00-20.00); Blood Urea Nitrogen 3.1 mg/dL (9.0-27.0); Calcium 8.7 mg/dL (8.7-10.3); Carbon Dioxide 26.1 mmol/L (20.0-27.5); Globulin 2.1 g/dL (1.6-3.3); Non-African American GFR(CKD) 124.9 (60.0-200.0); Potassium 3.8 mmol/L (3.5-5.5); Total Bilirubin 0.4 mg/dL (0.30-1.20); Total Protein 5.4 g/dL (6.2-8.2)
--- NOTE | 2022-11-27 14:04 | P.PN ---
Subjective Progress Note Date: 11/27/22 Patient is a 32-year-old male who initially presented to the ER on 11/09 he was diagnosed with pancreatitis, intially he went home from the ED and then represented on 11/10 requiring hospitalization for pancreatitis through 11/15. He presented to the ER on 11/25 due to worsening abdominal pain. In the ER he underwent an extensive evaluation. He was hypertensive on arrival with a blood pressure of 143/119. Initial laboratory analysis demonstrated a platelet count of 580, glucose 110, amylase 321, and lipase 3804. KUB demonstrated left renal calculus.CT abdomen and pelvis shows interstitial edematous pancreatitis without evidence of necrosis or organized pancreatic fluid collection with an 8 mm hy podense focus at the pancreatic head which may represent pseudocyst, mesenteric anasarca and edema, and nonobstructive bilateral renal calculi. In the ER he was given IV fluids, antiemetics, and Dilaudid. He is admitted for acute pancreatitis. Patient seen and examined at bedside. He reports improvement in his abdominal pain. Pain is 8/10 (down from 11/10) at its peak. MRI scheduled for later today. No nausea or vomiting. Vital signs reviewed General: nontoxic, mild distress secondary to pain, appears at stated age Derm: warm, dry Head: atraumatic, normocephalic, symmetric Eyes: EOMI, no lid lag, anicteric sclera ENT: Nose and ears atraumatic, no thrush, + pharyngeal erythema Neck: No thyromegaly, no cervical lymphadenopathy, trachea midline, supple Mouth: no lip lesion, mucus membranes moist Cardiovascular: S1S2 reg, no murmur, positive posterior tibial pulse bilateral, no edema, capillary refill less than 2 seconds Lungs: clear to auscultation bilateral, no rhonchi, no rales, no wheeze, no accessory muscle use Abdominal: soft, tender to palpation diffusely, most exclusively tender periepigastric, no guarding, no appreciable organomegaly, normal bowel sounds Ext: no gross muscle atrophy, muscle strength 5 out of 5 in all 4 extremities, no contractures Psych: Alert, oriented, appropriate affect Acute pancreatitis, recurrent Probable small pancreatic pseudocyst -Continue lactated Ringer's run at 200 mL/h -Nothing by mouth except for ice chips -MRCP pending -Gallbladder ultrasound reviewed no gallstones or dilated duct hemangioma identified -IgG4 level normal IgG2 level low at 204 -Consult GI (does not appear to be available this week) -Antiemetics, pain control -Has not drank alcohol since last discharge Nicotine dependency -Cessation asthma without exacerbation -PRN bronchdilators. Resolved: Thrombocytosis Patient is pending clinical improvement. GI unavailable but clinically slowly improving. MRI pending. Possible advancement of diet either today or tomorrow. Objective - Vital Signs Vital signs: Vital Signs Temp 98.4 F 11/27/22 12:17 Pulse 74 11/27/22 12:17 Resp 20 11/27/22 07:50 BP 123/83 11/27/22 12:17 Pulse Ox 97 11/27/22 12:17 FiO2 Intake & Output 11/26/22 11/27/22 11/27/22 18:59 06:59 18:59 Other: Voiding Method Toilet # Voids 2 1 - Labs CBC & Chem 7: 11/27/22 03:54 11/27/22 03:54 Labs: Abnormal Lab Results - Last 24 Hours (Table) 11/27/22 11/27/22 Range/Units 03:54 03:54 RBC 4.15 L (4.40-5.60) X 10*6/uL Hgb 12.5 L (13.0-17.0) g/dL Hct 37.1 L (39.6-50.0) % MPV 9.3 L (9.5-12.2) fL Anion Gap 9.10 L (10.00-18.00) mmol/L BUN 3.1 L (9.0-27.0) mg/dL BUN/Creatinine Ratio 4.21 L (12.00-20.00) Ratio Total Protein 5.4 L (6.2-8.2) g/dL Albumin 3.3 L (3.8-4.9) g/dL Amylase 528 H* (23-121) U/L Lipase 480 H (14-60) U/L
--- NOTE | 2022-11-27 14:58 | MR ---
MR pancreas / mrcp wo/w con: 11/27/2022 2:39 PM INDICATION: 32 years old Male. recurrent pancreatitis. COMPARISON: CT abdomen and pelvis 11/25/2022, 11/15/2022. TECHNIQUE: Multiplanar multisequence MR imaging of the abdomen was performed both before and after th e intravenous administration of gadolinium 6.5 mL Gadavist. MRCP protocol was utilized. Maximum inten sity projection and 3-D images were reconstructed of the biliary tree at a separate independent works tation. FINDINGS: LUNG BASES: Unremarkable. ABDOMEN: LIVER: Normal morphology. No significant difference of hepatic signal intensity between in and out of phase images. There is no focal hepatic parenchymal abnormality. BILE DUCTS: CBD 6 mm. There is no intra or extrahepatic biliary ductal dilatation. There is no filli ng defect, stricture, obstructing lesion or biliary wall thickening identified. GALLBLADDER: Unremarkable. PANCREAS: Redemonstration of edematous pancreatitis predominantly involving the tibia with adjacent f at stranding and fluid. No organized fluid collection. 8 mm nonenhancing focus within the head of the pancreas measuring (series 1101, image 257). This is not T2 hyperintense. It may represent a complex pseudocyst. No peripancreatic vascular cup location. The pancreatic parenchyma indicates homogeneous ly. SPLEEN: Within normal limits. ADRENAL GLANDS: Unremarkable. KIDNEYS: Within normal limits. No hydronephrosis. Prominent right extrarenal pelvis. BOWEL: Normal caliber. PERITONEUM: No free air. Small volume ascites. VASCULATURE: No abdominal aortic aneurysm. Major abdominal veins are patent. RETROPERITONEUM: Within normal limits. LYMPH NODES: Within normal limits. ABDOMINAL WALL: Unremarkable. MUSCULOSKELETAL: No suspicious osseous abnormality. IMPRESSION: 1. Findings consistent with acute interstitial edematous pancreatitis with similar fat stranding/per ipancreatic fluid. Small amount of ascites. No necrosis identified. 2. Redemonstration 8 mm nonenhancing focus within the pancreatic head which may represent a complex pseudocyst. 3. No evidence of biliary dilatation, stricture, filling defect, wall thickening or obstructing mass lesion.
[2022-11-27] MEDS: ONDANSETRON 4 MG/2 ML VIAL IVP PRN (15:30)
[2022-11-28] MEDS: HYDROmorphone 1 MG/ML 1 ML SYRINGE IVP PRN ×2 (00:45→04:03)
[2022-11-28] MEDS: LACTATED RINGERS 1,000 ML IV SCH ×2 (00:50→06:11)
[2022-11-28] MEDS ORDERED: oxyCODONE-APAP 10-325MG 1 EACH TAB PO PRN (07:41)
[2022-11-28 07:42] VITALS: BP 130/81; PULSE 67; RESP 15; TEMP 98.1
[2022-11-28] MEDS: PANTOPRAZOLE 40 MG/10 ML VIAL IV SCH (08:06)
[2022-11-28] MEDS: NICOTINE 14MG/24HR PATCH TRANSDERM SCH (08:06)
[2022-11-28] MEDS: ENOXAPARIN 40 MG/0.4 ML SYRINGE SQ SCH (08:13)
--- NOTE | 2022-11-28 14:14 | P.DS ---
Providers Date of admission: 11/25/22 13:08 Expected date of discharge: 11/28/22 Attending physician: Jodi Guzman MD Consults: 11/25/22 13:45 Consult Physician Routine Consulting Provider: Radha Henriquez Consult Reason/Comments: pancreatitis Do you want consulting provider notified?: Yes, Notify in am Primary care physician: Stated None Hospital Course: Patient is a 32-year-old male who initially presented to the ER on 11/09 he was diagnosed with pancreatitis, intially he went home from the ED and then represented on 11/10 requiring hospitalization for pancreatitis through 11/15. He presented to the ER on 11/25 due to worsening abdominal pain. In the ER he underwent an extensive evaluation. He was hypertensive on arrival with a blood pressure of 143/119. Initial laboratory analysis demonstrated a platelet count of 580, glucose 110, amylase 321, and lipase 3804. KUB demonstrated left renal calculus.CT abdomen and pelvis shows interstitial edematous pancreatitis without evidence of necrosis or organized pancreatic fluid collection with an 8 mm hypodense focus at the pancreatic head which may represent pseudocyst, mesenteric anasarca and edema, and nonobstructive bilateral renal calculi. In the ER he was given IV fluids, antiemetics, and Dilaudid. He is admitted for acute pancreatitis. Gallbladder ultrasound reviewed no gallstones or dilated duct hemangioma identified. MRCP showed acute interstitial edematous pancreatitis, 8 mm nonenhancing focus within the pancreatic head. Patient was seen and examined this morning. No acute events overnight. Patient reports complete resolution of his abdominal pain. No nausea or vomiting. Tolerating clear liquid diet. Requesting discharge. Patient is advised to follow-up with his PCP within 1-2 days of discharge. He is advised to follow-up with GI Dr. Bullock for further workup and management of findings on MRCP. Patient verbalized understanding of the plan. Pertinent studies include KUB, CT abdomen pelvis, gallbladder ultrasound, MRCP Vital signs reviewed General: nontoxic, mild distress secondary to pain, appears at stated age Derm: warm, dry Head: atraumatic, normocephalic, symmetric Eyes: EOMI, no lid lag, anicteric sclera ENT: Nose and ears atraumatic, no thrush, + pharyngeal erythema Neck: No thyromegaly, no cervical lymphadenopathy, trachea midline, supple Mouth: no lip lesion, mucus membranes moist Cardiovascular: S1S2 reg, no murmur, positive posterior tibial pulse bilateral, no edema, capillary refill less than 2 seconds Lungs: clear to auscultation bilateral, no rhonchi, no rales, no wheeze, no accessory muscle use Abdominal: soft, tender to palpation diffusely, most exclusively tender periepigastric, no guarding, no appreciable organomegaly, normal bowel sounds Ext: no gross muscle atrophy, muscle strength 5 out of 5 in all 4 extremities, no contractures Psych: Alert, oriented, appropriate affect Discharge diagnosis: Acute pancreatitis, recurrent Probable small pancreatic pseudocyst Nicotine dependency Asthma without exacerbation Resolved: Thrombocytosis This complex discharge took 35 minutes to complete. Patient Condition at Discharge: Stable Plan - Discharge Summary New Discharge Prescriptions: New oxyCODONE-APAP 10-325MG [Percocet 10-325 mg] 1 each PO Q6HR PRN #12 tab PRN Reason: Severe Pain (Scale 7 To 10) Changed Albuterol Sulfate [Albuterol Sulfate Hfa] 2 puff INHALATION RT-Q4H PRN #1 inh PRN Reason: Shortness Of Breath Discharge Medication List Albuterol Sulfate [Albuterol Sulfate Hfa] 2 puff INHALATION RT-Q4H PRN #1 inh 11/28/22 [Rx] oxyCODONE-APAP 10-325MG [Percocet 10-325 mg] 1 each PO Q6HR PRN #12 tab 11/28/22 [Rx] Follow up Appointment(s)/Referral(s): Radha Henriquez MD [STAFF PHYSICIAN] - 12/17/22 4:30 pm None,Stated [Primary Care Provider] - 1-2 days Discharge Disposition: HOME SELF-CARE
== END 2022-11-28 12:30 | disposition home or self-care (01) | DRG 439 ==
LOC: EC 10:35 → OBSVTOIN 13:08 → 5NMEDONC 13:08
PROVIDERS: ADMIT Internal Medicine; ATTEND Internal Medicine
DX: K85.80 Other acute pancreatitis without necrosis or infection (principal); K86.3 Pseudocyst of pancreas; K86.1 Other chronic pancreatitis; N20.0 Calculus of kidney; D75.839 Thrombocytosis, unspecified; F17.290 Nicotine dependence, other tobacco product, uncomplicated; J45.909 Unspecified asthma, uncomplicated; Z91.018 Allergy to other foods; Z86.14 Personal history of Methicillin resistant Staphylococcus aureus infection; Z80.9 Family history of malignant neoplasm, unspecified; Z87.442 Personal history of urinary calculi; Z71.6 Tobacco abuse counseling
CPT/HCPCS: 36415; 74018; 74177; 74183; 76705; 80053; 82150; 82787; 83605; 83690; 83735; 84145; 85025; 94640; 96361; 96374; 96375; 96376; 99285